=== PATIENT | male | born 1955 | race Caucasian/White ===

== ENCOUNTER 2017-05-14 19:10 | Inpatient (IN) | payer BC, OTHER ==
[~2017-05-14] VITALS: Ht 180.3 cm; Wt 99.8 kg
[2017-05-14] MEDS ORDERED: MAGNESIUM HYDROXIDE 30 ML LIQUID UDC PO PRN (20:15)
[2017-05-14] MEDS ORDERED: diphenhydrAMINE 50 MG CAPSULE PO PRN (20:15)
[2017-05-14] MEDS ORDERED: ACETAMINOPHEN 325 MG TABLET PO PRN (20:15)
[2017-05-14] MEDS ORDERED: LORAZEPAM 2 MG/1 ML VIAL IM PRN (20:15)
[2017-05-14] MEDS ORDERED: ONDANSETRON 4 MG/2 ML VIAL IM PRN (20:15)
[2017-05-14] MEDS ORDERED: IBUPROFEN 400 MG TABLET PO PRN (20:15)
[2017-05-14] MEDS ORDERED: DICYCLOMINE HCL 20 MG TABLET PO PRN (20:15)
[2017-05-14] MEDS ORDERED: LOPERAMIDE HCL 2 MG CAPSULE PO PRN ×2 (20:15)
[2017-05-14] MEDS ORDERED: hydrALAZINE HCL 50 MG TABLET PO PRN (20:15)
[2017-05-14] MEDS ORDERED: LORAZEPAM 1 MG TABLET PO PRN ×2 (20:15)
[2017-05-14] MEDS ORDERED: ONDANSETRON ODT 4 MG TAB.RAPDIS SL PRN (20:15)
[2017-05-14] MEDS ORDERED: MIRALAX 17 GM POWD.PACK PO PRN (20:15)
[2017-05-14] MEDS ORDERED: THIAMINE HCL 200 MG/2 ML VIAL IM ONE (20:15)
[2017-05-14] MEDS ORDERED: MAG HYDROX/AL HYDROX/SIMETH 30 ML LIQUID UDC PO PRN (20:15)
--- NOTE | 2017-05-14 20:30 | NUR ---
PRE-ADMISSION NOTE Patient is 62-year-old male seen at intake. Patient is alert and oriented x4, no SOB, mild tremors and mild anxiety noted at this time. Patient states he feels "wobbly" and his stomach feels "icky". Patient denies pain at this time. SN discussed with patient the admission policies of the unit. Patient is coherent and able to respond to questions appropriately. Patient is ambulatory with steady gait. Vital signs taken and as follows: BP: 143/92, P: 101, R: 18, O2: 95%, T: 98.0, PA: 0/10. Patient verbalized understanding of instructions and teachings regarding disposal of narcotic and other controlled home medications, unit protocols such as taking of vital signs every 4 hours and handling and disposal of contraband. Will continue with admission upon patient's arrival on the unit.
[2017-05-14] MEDS ORDERED: LORAZEPAM 1 MG TABLET PO SCH (21:00)
[2017-05-14 21:08] LABS: ALANINE AMINOTRANSFERASE 59 U/L (16-63); ALKALINE PHOSPHATASE 69 U/L (50-136); AMYLASE 52 U/L (25-115); ASPARTATE AMINOTRANSFERASE 40 U/L (15-37); CARBON DIOXIDE 22 mmol/L (21-32); CHLORIDE 101 mmol/L (98-107); CREATININE 1.1 mg/dL (0.6-1.3); GLUCOSE 125 mg/dL (74-106); MAGNESIUM 1.7 mg/dL (1.8-2.4); POTASSIUM 3.4 mmol/L (3.5-5.1); TOTAL PROTEIN, SERUM 7.5 g/dL (6.4-8.2); UREA NITROGEN, BLOOD 11 mg/dL (7-18)
[2017-05-14 21:13] LABS: *AMPHETAMINE, URINE NEGATIVE (NEGATIVE); *BARBITURATE, URINE NEGATIVE (NEGATIVE); *CANNABINOID, URINE NEGATIVE (NEGATIVE); *COCCAINE, URINE NEGATIVE (NEGATIVE); *OPIATE, URINE NEGATIVE (NEGATIVE); *PHENCYCLIDINE SCREEN,URINE NEGATIVE (NEGATIVE)
[2017-05-14 21:21] LABS: ETHANOL < 3 MG/DL (0-0)
[2017-05-14] MEDS ORDERED: MAGNESIUM OXIDE 400 MG TABLET PO ONE (21:30)
[2017-05-14] MEDS ORDERED: POTASSIUM CHLORIDE 10 MEQ CAPSULE.SA PO ONE (21:30)
--- NOTE | 2017-05-14 21:30 | NUR ---
ADMISSION NOTE Patient is 62-year-old male admitted on 05/14/17 for ETOH dependence, arrived on the unit at 2037. Patient has NKA, denies history of seizures. Patient was able to provide UDS at intake. Upon admission CIWA 2, BP: 143/92, P: 101, R: 18, O2: 95%, T: 98.0, PA: 0/10. Weight 220 lbs., height 511. Pt reports he has a PCP and has not been hospitalized within past 30 days. Patient states he is not a smoker. Patient is able to understand and respond to all questions pertaining to his hospitalization. Substance Abuse History is as follows: 1. Whiskey 0.5-1.0 pints daily, with 500-750 mL of wine daily, and sometimes a couple beers daily, at this rate for the last 2 months. Last intake was 1 pint of whiskey and some wine on 05/12/17. Patient has been drinking for 40 years. Patients longest sober period was about 3-4 months last year (2015). Patient states this is his first treatment/detox. Patient denies any substance abuse with either of his parents. Patient reports having gone to long term once for about 4 hours, many years ago. PMH: Patient states he has hypertension, related to his drinking (onset correlates with increase in patients drinking), specifically in the last few months. Patient states he experiences anxiety and depression related to his drinking. Pt denies any hx of seizures. Patient brought one medication from home, stating that it is the only medication he takes. Bystolic 10mg every morning, last dose was this morning. Upon assessment, patient is alert and oriented x4, noted with fine tremors and mild anxiety; patient verbalizes mixed emotions at this time. Patients respirations are even and unlabored. Denies SOB, chest pain, N/V/D. Bowel sounds active x 4, abdomen soft and non-tender; patient states he had a BM earlier this evening at intake. PERRLA. Patients skin is dry and intact, no open wounds noted. Patient denies SI/HI. Educational information provided and left at bedside. Pt oriented to room and encouraged to notify staff/nurse with any concerns. Safety measures in place, bed locked in low position, side rails up x2, call light within reach. Will continue to monitor.
[2017-05-14] MEDS ORDERED: NEBI10TA2 PO (21:37)
[2017-05-14 21:49] LABS: BASOPHILS # (AUTO) 0.1 K/uL (0.0-8.0); EOSINOPHILS # (AUTO) 0.1 K/uL (0.0-0.7); EOSINOPHILS % (AUTO) 1.7 % (0.0-7.0); HEMATOCRIT 45.1 % (40-50); LYMPHOCYTES # (AUTO) 1.3 K/UL (0.8-4.8); LYMPHOCYTES % (AUTO) 16.9 % (20.5-51.5); MEAN CORPUSCULAR HEMOGLOBIN 33.5 UUG (27.0-31.0); MEAN CORPUSCULAR HGB CONC 33 g/dL (32.0-37.0); MEAN CORPUSCULAR VOLUME 100.5 FL (82.0-92.0); MONOCYTES # (AUTO) 1.1 K/UL (0.1-1.30); MONOCYTES % (AUTO) 14.1 % (0.0-11.0); NEUTROPHILS # (AUTO) 5.2 K/UL (1.8-8.9); NEUTROPHILS % (AUTO) 66.3 % (38.5-71.5); PLATELET COUNT (AUTO) 190 K/UL (150-450); RED BLOOD CELL COUNT(AUTO) 4.48 MIL/UL (4.7-6.1); WHITE BLOOD COUNT (AUTO) 7.8 K/UL (4.0-11.2)
[2017-05-14] MEDS ORDERED: LORAZEPAM 1 MG TABLET ONE (22:06)
[2017-05-14] MEDS ORDERED: THIAMINE HCL 200 MG/2 ML VIAL ONE (22:06)
[2017-05-14] MEDS ORDERED: MAGNESIUM OXIDE 400 MG TABLET ONE (22:07)
[2017-05-14] MEDS ORDERED: POTASSIUM CHLORIDE 10 MEQ CAPSULE.SA ONE (22:08)
[2017-05-15] VITALS: BP 100/61
--- NOTE | 2017-05-15 | NUR ---
MIDNIGHT CIWA DEFERRED Midnight CIWA deferred due to patient sleeping; to be assessed and scored while patient is awake per protocol. Patient's respirations are 14/min, even and unlabored. Safety measures in place, bed locked in low position, side rails up x2, call light within reach. Will continue to monitor.
[2017-05-15 04:00] VITALS: BP 109/77
--- NOTE | 2017-05-15 04:00 | NUR ---
4AM CIWA DEFERRED 4AM CIWA deferred due to patient sleeping; to be assessed and scored while patient is awake per protocol. Patient's respirations are 12/min, even and unlabored. Safety measures in place, bed locked in low position, side rails up x2, call light within reach. Will continue to monitor.
--- NOTE | 2017-05-15 07:10 | NUR ---
END OF SHIFT Patient is 62-year-old patient admitted on 05/14/17 for ETOH dependence. Patient has past medical history of essential hypertension, with past surgical history of tonsillectomy when he was [id number]. Patient is FULL code, NKA, and on a regular diet. Patient started a 4-day Ativan taper last night. Patient slept for 7 hours and did not receive any PRNs, however, patient receieved Magnesium and Potassium PO for replacement. Total intake 850 mL, void x1, stool x 1. Last CIWA score was 2. Patient is on fall and seizure precautions with no history of seizure. Safety measures in place, bed locked in low position, side rails up x2, call light within reach. Will endorse to day shift.
--- NOTE | 2017-05-15 07:35 | NUR ---
START OF SHIFT Received report from night shift supervisor nurse. 62 year old male patient admitted on 05/14/17 for ETOH withdrawals. Pt has been started on a 4 day Ativan taper and is tolerating well. S/S of withdrawals are being managed by ordered medications. Py reports hx of hypertension. Magnesium and Potassium replaced. V/S remain WNL. Pt slept for 7 hours. All needs met at this time, safety measures are in place, will continue to monitor.
[2017-05-15 08:04] VITALS: BP 123/91
[2017-05-15] MEDS: MULTIVITAMINS,THERAPEUTIC TABLET PO SCH (08:51)
[2017-05-15] MEDS: THIAMINE HCL 100 MG TABLET PO SCH (08:52)
[2017-05-15] MEDS: FOLIC ACID 1 MG TABLET PO SCH (08:52)
[2017-05-15] MEDS: LORAZEPAM 1 MG TABLET PO SCH ×3 (08:52→20:41)
[2017-05-15] MEDS: PATIENT MAY USE OWN MED- MD OK PO SCH (08:58)
[2017-05-15] MEDS ORDERED: TUBERCULIN,PURIF.PROT.DERIV. 5 TU/0.1 ML TEST ID ONE (09:00)
[2017-05-15 12:46] VITALS: BP 122/77
[2017-05-15 17:43] VITALS: BP 116/87
--- NOTE | 2017-05-15 19:03 | NUR ---
END OF SHIFT Received report from night nurse. 62 year old male patient admitted on 05/14/17 for ETOH withdrawals. Pt has been started on a 4 day Ativan taper and is tolerating well. S/S of withdrawals are being managed by ordered medications. Pt reports hx of hypertension. CIWA is 5. No PRN medications needed or administered. V/S remain WNL. Pt attends groups and activities and is compliant with therapeutic care plan. Adequate caloric and fluid intake. All needs met at this time, safety measures are in place, night nurse will continue to monitor.
--- NOTE | 2017-05-15 19:15 | NUR ---
START OF SHIFT Received 62 year old male patient admitted on 05/14/17 for ETOH dependency. He is Full code with NKA. Pt reports a PMHx of HTN, and tonsillectomy (age 11). He reports drinking ETOH (whiskey, wine and beer) -1 pint of whiskey, 1 bottle of wine, and a beer or two daily for 2 months. Last dose was 1 pint of whiskey and some wine on 05/12/17. He denies any history of seizures. He is placed on a 4 day Ativan taper and is tolerating well. Per endorsement, pt did not receive any PRN medications. Pt is alert and oriented x4, breathing is even and unlabored. Safety measures in place. Will monitor.
[2017-05-15 20:00] VITALS: BP 133/94
[2017-05-16 00:39] VITALS: BP 129/86
[2017-05-16 04:00] VITALS: BP 115/75
--- NOTE | 2017-05-16 07:17 | NUR ---
END OF SHIFT Pt is a 62 year old male patient admitted on 05/14/17 for ETOH dependency. He is Full code with NKA. Pt reports a PMHx of HTN, and tonsillectomy (age 11). He continues on a 4 day Ativan taper and is tolerating well. He did not receive or request PRN medications. He slept a total of 8hrs, Intake:1057mL Void:x3, BM:0, CIWA:3. Pt remains alert and oriented x4, breathing is even and unlabored. Safety measures in place. Endorsed to AM shift.
[2017-05-16 07:42] LABS: MAGNESIUM 1.9 mg/dL (1.8-2.4); PHOSPHOROUS 4.4 mg/dL (2.5-4.9); POTASSIUM 3.6 mmol/L (3.5-5.1)
--- NOTE | 2017-05-16 07:47 | NUR ---
BEGINNING OF SHIFT Patient endorsement report received from shift mgr nurse, all pertinent information discussed. patient is a 62 year old male admitted on: 05/14/2017, patient with admitting Dx: etoh dependence. patient Continues on 4 day Ativan taper and is scheduled to begin day 3 of taper, will monitor closely. Received patient in her room. Alert and oriented x 4. On fall and seizure precautions. Educated patient on the current plan of care for the day and medication regimen. Safety measures in place. call light kept with in reach, will continue to monitor closely.
[2017-05-16 08:08] VITALS: BP 118/76
[2017-05-16 09:06] LABS: HEPATITIS B SURFACE AG Negative (Negative)
[2017-05-16] MEDS: FOLIC ACID 1 MG TABLET PO SCH (09:34)
[2017-05-16] MEDS: THIAMINE HCL 100 MG TABLET PO SCH (09:34)
[2017-05-16] MEDS: PATIENT MAY USE OWN MED- MD OK PO SCH (09:34)
[2017-05-16] MEDS: MULTIVITAMINS,THERAPEUTIC TABLET PO SCH (09:34)
[2017-05-16] MEDS: LORAZEPAM 1 MG TABLET PO SCH ×2 (09:35→20:32)
--- NOTE | 2017-05-16 10:17 | NUR ---
Therapist prompted client about group times. Client plans to attend all groups today.
[2017-05-16 13:00] VITALS: BP 122/78
[2017-05-16 17:00] VITALS: BP 138/81
--- NOTE | 2017-05-16 18:48 | NUR ---
END OF SHIFT Patient alert and oriented x4, compliant with therapeutic plan of care. Patient with admitting Dx: etoh dependence. Patient continues on 4 day Ativan taper as ordered, well tolerated, continues on day 3 of taper. 0900 assessment patient presented with: tremors that can be felt but not seen, barely sweating and anxiety with ciwa score of: 5; 1300 assessment patient presented with: tremors that can be felt but not seen, and mild anxiety with ciwa score of: 5; 1700 assessment patient presented with: tremors that can be felt but not seen, and mild anxiety with ciwa score of: 2. Patient encouraged adequate PO fluid intake as tolerated. Encouraged to attend group therapies/sessions to learn new coping skills to prevent relapse, noted attending and participating denies any SI/HI. Patients Respirations even and unlabored. No SOB noted, lungs are clear upon auscultation. Skin warm and dry to touch. Abdomen soft and non-distended with (+) BS in all 4 quadrants. No complains of N/V/D or constipation noted. Bladder non-distended. Voids independently. Safety measures in place. Call light kept with in reach. All needs met and rendered. Patient endorsed to digital asset manager nurse, all pertinent information discussed.
--- NOTE | 2017-05-16 19:30 | NUR ---
Start of Shift Notes Received a 62 year old male admitted on 05/14/2017 for ETOH dependence. Received patient in her room. Alert and oriented x 4. On fall and seizure precautions. During the rounds at 1930, no complaints made just mild anxiety. Safety measures in place. Bed on lowest position, side rails up padded 2x, and call light kept with in reach. We'll continue to monitor.
[2017-05-16 20:00] VITALS: BP 151/93
--- NOTE | 2017-05-16 20:32 | NUR ---
PRN Hydralazine Px's BP= 151/101 with SC= 93. Hydralazine 50 mg/tab, 1 tab given PO as PRN med. We'll continue to monitor.
--- NOTE | 2017-05-16 21:32 | NUR ---
BP reassessment BP= 151/93 with SD= 107. We'll continue to monitor.
[2017-05-17] VITALS: BP 135/92
--- NOTE | 2017-05-17 | NUR ---
CIWA deferred CIWA deferred due to the px is asleep. To assess if the px is awake per doctor's order. We'll continue to monitor.
[2017-05-17 04:00] VITALS: BP 140/88
--- NOTE | 2017-05-17 07:10 | NUR ---
End of Shift Notes 62 y/o male admitted on 05/14/2017 for etoh dependence. Received patient in her room. Alert and oriented x 4. On fall and seizure precautions. During the shift, no complaints made just mild anxiety. Safety measures in place. At 2030, Px's BP= 151/101 with CT= 93. Hydralazine 50 mg/tab, 1 tab given PO as PRN med. At 0400, BP= 140/88 with CT= 99. Oral intake of 1,700 ml, voided 3x, No BM. Slept for 7 hours. Bed on lowest position, side rails up padded 2x, and call light kept with in reach. We'll continue to monitor closely.
--- NOTE | 2017-05-17 07:15 | NUR ---
Start of Shift Notes Received report Pt is a 62 year old male admitted on 05/14/2017 for ETOH dependence. Received patient in his room. Alert and oriented x 4. Pt continues on fall and seizure precautions. Pt is full code regular diet, denies any food or drug allergies. Pt's last CIWA was a 2 taken at 0400. pt received PRN Hydralazine for elevated blood pressure, medication effective per night cleaner nurse. Encouraged pt to drink more fluids to facilitate detox process. Safety measures in place. Bed on lowest position, side rails up padded 2x, and call light kept with in reach. We'll continue to monitor.
[2017-05-17 08:00] VITALS: BP 153/106
[2017-05-17] MEDS ORDERED: LORAZEPAM 1 MG TABLET PO SCH (09:00)
[2017-05-17] MEDS: FOLIC ACID 1 MG TABLET PO SCH (09:08)
[2017-05-17] MEDS: MULTIVITAMINS,THERAPEUTIC TABLET PO SCH (09:08)
[2017-05-17] MEDS: THIAMINE HCL 100 MG TABLET PO SCH (09:08)
[2017-05-17] MEDS: PATIENT MAY USE OWN MED- MD OK PO SCH (09:11)
[2017-05-17 12:00] VITALS: BP 147/101
[2017-05-17 16:00] VITALS: BP 173/104
[2017-05-17] MEDS: CLONIDINE HCL 0.1 MG TABLET PO PRN (17:13)
--- NOTE | 2017-05-17 17:13 | NUR ---
PRN medication Pt had elevated BP of 173/114 with pulse of 98 contacted and notified, got an order for clonidine 0.1mg Q6H PRN, all orders carried out. Administered PRN medication, will continue to monitor
--- NOTE | 2017-05-17 18:15 | NUR ---
PRN REASSESSMENT Medication effective, pt's BP dropped to 149/94 pulse 88. all needs met will continue to monitor.
[2017-05-17] MEDS ORDERED: LISI10TA5 PO (19:15)
[2017-05-17] MEDS ORDERED: THIA100T13 PO (19:15)
[2017-05-17] MEDS ORDERED: FOLI1TAB16 PO (19:15)
[2017-05-17] MEDS ORDERED: NEBI10TA2 PO (19:15)
[2017-05-17] MEDS ORDERED: CLON0.1T14 PO (19:15)
--- NOTE | 2017-05-17 19:18 | NUR ---
End Of Shift Pt is a 62 year old male admitted on 05/14/2017 for ETOH dependence. Alert and oriented x 4. Pt continues on fall and seizure precautions. Pt is full code regular diet, denies any food or drug allergies. VS monitored closely q 4 hours. Withdrawal symptoms were closely monitored. Initial CIWA 2. Patient encouraged adequate PO fluid intake as tolerated. Patient presented with tremors and anxiety during the day. Last CIWA 2. Per patient, Ativan has been helping him with his withdrawal symptoms. Pt completed his taper, tolerating well. Pt ate all of his meals. Pt received PRN Clonidine 0.1mg for hypertension medication effective. Patient encouraged to attend group therapies/sessions to learn new coping skills to recent relapse, patient denies SI/HI. Participated in group and therapy sessions. All needs met and attended
--- NOTE | 2017-05-17 19:30 | NUR ---
START OF SHIFT Pt is a 62 y/o male admitted on 05/14/17 for ETOH dependence. Pt is full code, regular diet, NKA and on fall/seizure precautions. No reported seizure hx. Pt reports PMH of HTN. Pt was on a 4 day Ativan taper that started on 05/14/17, finished taper. Pt is scheduled to be D/C tomorrow. Upon assessment pt presents with anxiety, fatigue, flushed skin, appetite loss, intermittent headache, anhedonia and dysphoria. Respirations 16, even and unlabored. Denies N/V/D. Denies chest pain or SOB. Medications due. Safety measures in place. Call light within reach. Will continue to monitor.
[2017-05-17 20:00] VITALS: BP 125/82
[2017-05-17] MEDS: LISINOPRIL 10 MG TABLET PO SCH (20:13)
--- NOTE | 2017-05-18 | NUR ---
CIWA DEFERRED Pt is laying in bed with eyes closed, CIWA deferred, to be assessed when pt is awake per orders. Respirations 18, even and unlabored. Safety measures in place. Call light within reach. Will continue to monitor.
[2017-05-18] MEDS: CLONIDINE HCL 0.1 MG TABLET PO PRN (01:44)
--- NOTE | 2017-05-18 01:44 | NUR ---
PRN CLONIDINE ADMINISTRATION BP 145/95 HR 82. Safety measures in place. Call light within reach. Will continue to monitor.
[2017-05-18 02:44] VITALS: BP 138/89
--- NOTE | 2017-05-18 02:44 | NUR ---
PRN CLONIDINE REASSESSMENT BP 138/89 HR 84, Clonidine improved BP. Safety measures in place. Call light within reach. Will continue to monitor.
[2017-05-18 04:00] VITALS: BP 140/92
--- NOTE | 2017-05-18 04:00 | NUR ---
CIWA DEFERRED AND VITALS REFUSED Pt is laying in bed with eyes closed, CIWA deferred, to be assessed when pt is awake per orders. Vitals refused. Respirations 16, even and unlabored. Safety measures in place. Call light within reach. Will continue to monitor. Addendum: 05/18/17 at 729 by GERI SUTTON RN PT DID NOT REFUSE VITALS, VITALS INPUTTED. COWS DEFERRED. Addendum: 05/18/17 at 729 by GERI SUTTON RN CIWA DEFERRED*
--- NOTE | 2017-05-18 07:31 | NUR ---
END OF SHIFT Pt is a 62 y/o male admitted on 05/14/17 for ETOH dependence. Pt is full code, regular diet, NKA and on fall/seizure precautions. No reported seizure hx. Pt reports PMH of HTN. Pt was on a 4 day Ativan taper that started on 05/14/17, finished taper. Pt is scheduled to be D/C today. Pt presented with anxiety, fatigue, flushed skin, appetite loss, intermittent headache, anhedonia and dysphoria. Scheduled medications and PRN Clonidine administered, effective in S/S of withdrawal as verbalized by pt. Last CIWA 3 at 1999. Pt slept 10 hours. Intake 1250 ml, void x 2, stool x 0. Safety measures in place. Call light within reach. Pts needs have been met. Endorsed to day shift nurse.
--- NOTE | 2017-05-18 07:49 | NUR ---
BEGINNING OF SHIFT Patient endorsement report received from security shift supervisor nurse, all pertinent information discussed. patient is a 62 year old male admitted on: 05/14/2017, patient with admitting Dx: etoh dependence. Patient completed 5 day ativan taper as ordered and is scheduled to be discharged this morning. Patient noted self motivated towards sobriety. Received patient inr room. Alert and oriented x 4. On fall and seizure precautions. Educated patient on the current plan of care for the day and medication regimen. Safety measures in place. call light kept with in reach, will continue to monitor closely.
[2017-05-18 08:20] VITALS: BP 138/89
[2017-05-18] MEDS: PATIENT MAY USE OWN MED- MD OK PO SCH (08:38)
[2017-05-18] MEDS: MULTIVITAMINS,THERAPEUTIC TABLET PO SCH (08:38)
[2017-05-18] MEDS: FOLIC ACID 1 MG TABLET PO SCH (08:38)
[2017-05-18 08:39] VITALS: BP 138/89
[2017-05-18] MEDS: LISINOPRIL 10 MG TABLET PO SCH (08:39)
[2017-05-18] MEDS: THIAMINE HCL 100 MG TABLET PO SCH (08:39)
--- NOTE | 2017-05-18 09:46 | NUR ---
DISCHARGE Patient discharged off the unit at 0946 in stable condition, not in any apparent acute distress. patient discharged to the [facility], in stable condition, noted self motivated towards sobriety. patients vital signs WNL. patient with no s/sx of withdrawal. patient with last ciwa score of: 0. Patients home medications, and discharge instructions placed in patients personal duffel bag. Prescriptions were input electronically by . Patient discharged off the unit at 0946 in stable condition.
== END 2017-05-18 09:10 | disposition other institution (70) | DRG 895 ==
LOC: SRC 19:18
PROVIDERS: ADMIT Internal Medicine; ATTEND Internal Medicine
PROC: HZ2ZZZZ Detoxification Services for Substance Abuse Treatment (ICD-10-PCS; principal; 2017-05-14)
PROC: HZ41ZZZ Group Counseling for Substance Abuse Treatment, Behavioral (ICD-10-PCS; 2017-05-15)
PROC: HZ31ZZZ Individual Counseling for Substance Abuse Treatment, Behavioral (ICD-10-PCS; 2017-05-16)
DX: F10.230 Alcohol dependence with withdrawal, uncomplicated (principal); E83.42 Hypomagnesemia; E87.6 Hypokalemia; Z81.1 Family history of alcohol abuse and dependence; Z83.3 Family history of diabetes mellitus; Y90.0 Blood alcohol level of less than 20 mg/100 ml; Z83.79 Family history of other diseases of the digestive system; I10 Essential (primary) hypertension
CPT/HCPCS: 36415; 70030-TC; 80307; 83735; 84100; 85025; 86580; 86592; 86705; 86803; 87340; 87806; G0480; J3411